=== PATIENT | male | born 1980 | race Native Hawaiian/Other Pacific Islander ===

== ENCOUNTER 2018-02-05 06:44 | Emergency (ER) | payer BC ==
[2018-02-05 07:00] VITALS: BP 120/83; PULSE 103; RESP 20; TEMP 99.1; O2SAT 98
--- NOTE | 2018-02-05 07:44 | C.PDOC ---
History Of Present Illness 37 y/o male presents to the ER complaining of sore throat radiating to the right ear which has been present for the past 6 days. Patient states that he also has subjective fever since yesterday. Patient denies having cough, CP, and SOB. Time Seen by Provider: 02/05/18 07:21 Chief Complaint (Nursing): Cough, Cold, Congestion History Per: Patient History/Exam Limitations: no limitations Onset/Duration Of Symptoms: Days Current Symptoms Are (Timing): Still Present Severity: Moderate Past Medical History Reviewed: Historical Data, Nursing Documentation, Vital Signs Vital Signs: Last Vital Signs Temp 99.1 F 02/05/18 06:53 Pulse 103 H 02/05/18 06:53 Resp 20 02/05/18 06:53 BP 120/83 02/05/18 06:53 Pulse Ox 98 02/05/18 09:20 - Medical History PMH: No Chronic Diseases Surgical History: No Surg Hx Family History: States: No Known Family Hx - Social History Hx Alcohol Use: Yes Hx Substance Use: No - Immunization History Hx Tetanus Toxoid Vaccination: No Hx Influenza Vaccination: No Hx Pneumococcal Vaccination: No Review Of Systems Except As Marked, All Systems Reviewed And Found Negative. Constitutional: Positive for: Fever (subjective fever). Negative for: Chills ENT: Positive for: Throat Pain Cardiovascular: Negative for: Chest Pain Respiratory: Negative for: Cough, Shortness of Breath Physical Exam - Physical Exam Appears: Non-toxic, No Acute Distress Skin: Normal Color, Warm, Dry Head: Atraumatic, Normacephalic Eye(s): bilateral: Normal Inspection Ear(s): Bilateral: Normal Nose: Normal Oral Mucosa: Moist Throat: Erythema (erythema (L>R)), No Exudate, Other (patient can swallow, uvula midline, no asymmetry) Neck: Supple Chest: Symmetrical Cardiovascular: Rhythm Regular Respiratory: Normal Breath Sounds, No Rales, No Rhonchi, No Wheezing Neurological/Psych: Oriented x3, Normal Speech ED Course And Treatment O2 Sat by Pulse Oximetry: 98 (RA) Pulse Ox Interpretation: Normal Progress Note: Patient treated with Amoxicillin PO and Motrin PO. Patient has been discharged and instructed to follow up with PMD in 1-2 days. Disposition - Disposition Disposition: HOME/ ROUTINE Disposition Time: 07:43 Condition: STABLE Additional Instructions: Follow up with your PMD within 1-2 days. Return to ED if feel worse. 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 - Scribe Statement The provider has reviewed the documentation as recorded by the Ulices Shields Provider Attestation All medical record entries made by the Ulices were at my direction and personally dictated by me. I have reviewed the chart and agree that the record accurately reflects my personal performance of the history, physical exam, medical decision making, and the department course for this patient. I have also personally directed, reviewed, and agree with the discharge instructions and disposition.
== END 2018-02-05 07:55 | disposition home or self-care (01) ==
LOC: C.ER 06:44
DX: J02.9 Acute pharyngitis, unspecified (principal)